=== PATIENT | female | born 1965 | race Caucasian/White ===

== ENCOUNTER 2023-11-14 14:41 | Outpatient (AMB) | payer OTHER, SELFPAY ==
--- NOTE | 2023-11-14 15:03 | MHC.OFFVIS ---
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 She also reports a syncope episode a few moths ago where she got up too fast and passed out hitting her head on the floor. She has since been having headaches, nausea, dizziness. Lathe Hand Required: No Allergies No Known Allergies Allergy (Verified 11/14/23 15:12) Medication List - Last Reconciled 11/14/23 by Mariola Townsend MD albuterol sulfate 90 mcg/actuation 1 inh inhalation QID bupropion HCl 150 mg PO DAILY fexofenadine (Roberta Allergy) 60 mg PO Q12H fluticasone propion-salmeterol 500-50 mcg/dose (Wixela Inhub) 1 inh inhalation BID ketotifen fumarate 0.025%(0.035%) 1 drp ophthalmic (eye) BID lorazepam 0.5 mg PO DAILY PRN montelukast (Singulair) 10 mg PO DAILY sertraline 200 mg PO DAILY trazodone 100 mg PO QDAY HPI HPI Comments History of Present Illness Details 58y/o female comes for evaluation of tingling in her left leg following Vaccination for COVID - J and J ( Jul 2021) and recent syncope. It started 2 weeks after her vaccination . she also her left leg becomes numb when she crosses her legs. No worsening or improvement since then. she also feels like her left leg is swollen but does not look swollen.she has back pain and her X ray shows severe narrowing of the disc spaces at L4-5 and L5-S1 levels. There are hypertrophic deg changes in the facet joints at L4-5 L5S1 levels and ted sacroiliac inflammation. she has neck pain Her PCP s notes says she had tingling in her UE and LE. she has h/o depression, anxiety . she also has increased sensitivity to cold ( Raynauds)- in her extremities she reports presyncopal episodes usually when she stands up from a sitting positions since her 30s and has worsened. In October 2023 - she got up quickly from her bed and passed out. she went to ER . Since then she has dizziness with change in head position, headaches.she feels worse when she turns to her left - feels dizzy she drinks about 50 oz of water she had a previous episode in 2019 and her MRI at that time - punctate foci of microhemorhage in the left parietal sulcus and undersurface of corpus collosum she has headaches since 2019 - mild and present all the time. No nausea, vomiting no photophobia or phonophobia. Alcohol intake - 10 drinks per week [facility] Medical History (Updated 11/14/23 @ 15:48 by Mariola Townsend MD) Vertigo Paresthesia of left leg Panic attacks Depression Anxiety Back pain Pre-syncope Syncope Chronic daily headache Surgical History H/O wrist surgery H/O nasal polypectomy Family History Father No problems noted. Mother HTN (hypertension) Breast CA Sister Anxiety Osteoporosis Social History Household Members: None Housing: House Alcohol intake: current Comment: 1 drink per night Patient Tobacco Use Status: Never used Tobacco Use of substances other than those prescribed or required for medical reasons: No Physical Exam Vital Signs: Last Vital Signs Pulse 78 11/14/23 15:05 Resp 16 11/14/23 15:05 BP 142/78 H 11/14/23 15:05 Pulse Ox 99 11/14/23 15:05 Oxygen Delivery Method Room Air 11/14/23 15:05 BMI result Body Mass Index 18.8 Const General: cooperative, healthy appearing and anxious Nutritional Appearance: thin Orientation/consciousness: patient oriented x3 Eyes Pupils: Equal, round and reactive pupils present Neuro General: patient oriented x3, gait normal, tone normal and moves all extremities Cranial nerves: Yes Facial sensation intact/muscles of mastication intact, Yes Intact sense of smell present, Yes Equal, round and reactive pupils present, Yes Bilaterally intact EOM present, Yes Nystagmus not present, Yes Normal facial strength present and Yes Midline tongue present Cognition (Neuro): normal cognition Gait exam (Neuro): Normal gait present Motor exam (neuro): 5/5 motor strength present throughout and Normal motor muscle tone present throughout Deep tendon reflexes (DTR's): Right triceps reflex intensity grade: 2+, Left triceps reflex intensity grade: 2+, Rt Biceps (C5, C6): 2+, Left biceps reflex intensity grade: 2+, Right brachioradialis reflex intensity grade: 2+, Left brachioradialis reflex intensity grade: 2+, Right patellar reflex intensity grade: 2+ and Left patellar reflex intensity grade: 2+ Coordination: [id number] test normal Assessment & Plan Assessment & Plan (1) Paresthesia of left leg: Comment: related to her lumbar deg changes or peroneal nerve compression ? Code(s): R20.2 - Paresthesia of skin (2) Syncope: Comment: no orthostatic changes although the patient c/o dizziness on standing Code(s): R55 - Syncope and collapse (3) Vertigo: Code(s): R42 - Dizziness and giddiness Plan Vestibular therapy Cardiology evaluation for syncope EMg NCS - left leg Orders: Orders NE electromyogram (EMG) Today R20.2 - Paresthesia of skin PT Evaluation and Treatment Today R42 - Dizziness and giddiness Referrals Cardiology Referral R55 - Syncope and collapse Coding Level of Care Code New Pt Level 4 (36124) Diagnoses Paresthesia of left leg R20.2 Syncope R55 Vertigo R42
[2023-11-14 15:05] VITALS: BP 142/78; PULSE 78; RESP 16; O2SAT 99; BMI 18.8
[2023-11-14 15:49] VITALS: BP 122/88; BP 122/90; PULSE 66; PULSE 67; PULSE 74
== END 2023-11-14 15:56 | disposition home or self-care (01) ==
PROVIDERS: PCP Pediatrics; Referring Provider Internal Medicine; Visit Provider Psychiatry & Neurology Neurology
DX: R20.2 Paresthesia of skin (principal); R55 Syncope and collapse; R42 Dizziness and giddiness
CPT/HCPCS: 99204

== ENCOUNTER → 2023-11-14 14:41 | Outpatient (BNVA) | payer OTHER, SELFPAY | PROVIDERS: PCP Pediatrics; Referring Provider Internal Medicine; Visit Provider Psychiatry & Neurology Neurology ==

== ENCOUNTER 2024-01-15 14:00 | Outpatient (REF) | payer OTHER, SELFPAY ==
--- NOTE | 2024-01-15 14:04 | EMG_ITS ---
Chief complaint: At least 2 years of numbness on left dorsal foot and leg. She has chronic back pain. Three years ago, she sprained her left ankle. Then started noting calcification on left anterior ankle. Exam shows bony calcification in the area of EDB muscle. EDB muscles atrophied compared to right. No footdrop. Reason for referral: Evaluate for peroneal neuropathy versus radiculopathy Referred by: Dr. Townsend Procedure done: Left lower extremity ordered, comparison studies done on right side as well Precautions and/or limitations: None The limb temperature was monitored continuously and remained between 32-36 degrees C during the performance of the NCS. Nerve Conduction Studies Anti Sensory Summary Table ?Stim Site NR Onset (ms) Norm Onset (ms) Peak (ms) Norm Peak (ms) O-P Amp (?V) Norm O-P Amp Site1 Site2 Delta-0 (ms) Dist (cm) Rod (m/s) Norm Rod (m/s) Left Sup Peron Anti Sensory (Ankle) Lateral Leg ? 1.4 2.5 <4.4 6.2 >5.0 Lateral Leg Ankle 1.4 14.0 100 Left Sural Anti Sensory (Lat Mall) Calf ? 2.9 3.4 <4.0 6.7 >5.0 Calf Lat Mall 2.9 14.0 48 Right Sural Anti Sensory (Lat Mall) Calf ? 3.1 3.5 <4.0 7.8 >5.0 Calf Lat Mall 3.1 14.0 45 Motor Summary Table ?Stim Site NR Onset (ms) Norm Onset (ms) O-P Amp (mV) Norm O-P Amp iAmp (mV) Amp (1st) (%) Site1 Site2 Delta-0 (ms) Dist (cm) Rod (m/s) Norm Rod (m/s) Left Peroneal Motor (Ext Dig Brev) Ankle NR <4.0 >2.5 Ankle Ext Dig Brev 0.0 B Fib NR B Fib Ankle 0.0 >40 Poplt NR Poplt B Fib 0.0 >40 Right Peroneal Motor (Ext Dig Brev) Ankle ? 4.0 <4.0 5.6 >2.5 6.7 100.0 Ankle Ext Dig Brev 4.0 0.0 B Fib ? 11.4 4.8 5.8 85.7 B Fib Ankle 7.4 36.0 49 >40 Poplt ? 12.1 5.9 7.6 105.4 Poplt B Fib 0.7 5.0 71 >40 Left Peroneal TA Motor (Tib Ant) Fib Head ? 3.7 <4.2 2.7 3.0 100.0 Fib Head Tib Ant 3.7 0.0 Poplit ? 3.4 <5.7 2.9 3.4 107.4 Poplit Fib Head 0.3 5.0 167 >40.5 Left Tibial Motor (Abd Desai Brev) Ankle ? 3.4 <5 4.6 >2.5 7.3 100.0 Ankle Abd Desai Brev 3.4 0.0 Knee ? 11.5 3.3 6.0 71.7 Knee Ankle 8.1 40.0 49 >40 Right Tibial Motor (Abd Desia Brev) Ankle ? 3.4 <5 4.9 >2.5 6.1 100.0 Ankle Abd Desai Brev 3.4 0.0 Knee ? 12.3 3.7 4.6 75.5 Knee Ankle 8.9 42.0 47 >40 EMG ?Side Muscle Nerve Root Ins Act Fibs Psw Amp Dur Poly Recrt Int Pat Comment Left AbdHallucis MedPlantar S1-2 Nml Nml Nml Nml Nml 0 Nml Complete Left AntTibialis Dp Br Peron L4-5 Nml Nml Nml Nml Nml 0 Nml Complete Left MedGastroc Tibial S1-2 Nml Nml Nml Nml Nml 0 Nml Complete Left VastusMed Femoral L2-4 Nml Nml Nml Nml Nml 0 Nml Complete Left Peroneus Long Sup Br Peron L5-S1 Nml Nml Nml Nml Nml 0 Nml Complete Paraspinal EMG ?Side Muscle Nerve Root Ins Act Fibs Psw Comment Left Lumbar Upper Rami Nml Nml Nml Left Lumbar Mid Rami Nml Nml Nml Left Lumbar Lower Rami Nml Nml Nml FINDINGS: Left peroneal nerve, recording at EDB, showed no response. Left peroneal nerve, recording at TA muscle, showed small amplitudes but no conduction block across the fibular neck. All other nerves tested, including left superficial peroneal sensory nerve, were within normal. Concentric needle EMG was performed in selected muscles of the left lower extremity and lumbar paraspinals. Study did not reveal signs of electric abnormalities as shown in the table below. IMPRESSION: 1. This is an abnormal study. 2. There is electrodiagnostic evidence for left isolated deep peroneal neuropathy. 3. There is no electrodiagnostic evidence for tibial neuropathy. lumbosacral plexopathy, lumbar radiculopathy, or peripheral neuropathy. CLINICAL COMMENT: Possible correlation between calcification on left ankle where EDB muscle should be. Further clinical correlation recommended. Thank you for your kind referral. Madonna Champion MD, MARGARET Board Certified, [place] [employer] and [employer] (ABPMR) Board Certified, [place] Board [employer] Electrodiagnostic [employer] (ABEM) [place] [id number] [facility]
== END 2024-01-15 14:01 | disposition home or self-care (01) ==
LOC: HO.NEURO 14:00
PROVIDERS: PCP Pediatrics; Visit Provider Psychiatry & Neurology Neurology
DX: R20.2 Paresthesia of skin (principal)
CPT/HCPCS: 95886; 95910

== ENCOUNTER → 2024-01-15 14:04 | Outpatient (BNV) | payer OTHER, SELFPAY | PROVIDERS: PCP Pediatrics; Visit Provider Physical Medicine & Rehabilitation | DX: G57.32 Lesion of lateral popliteal nerve, left lower limb (principal) | CPT/HCPCS: 95886; 95910 ==

== ENCOUNTER 2024-03-09 07:26 | Outpatient (AMB) | payer OTHER, SELFPAY ==
--- NOTE | 2024-03-09 07:27 | A.OFFVIS_ITS ---
Vital Signs 03/09/24 07:29 Height 5 ft 6 in Weight 112 lb 6 oz BMI 18.1 BP 108/70 Blood Pressure Location Rt brachial Position Sitting Respiration 16 Pulse 64 Pulse Source Palpation Intake Visit Reasons: 4M follow up-CONF Intake Note: Pt presents to the office for her 4 month follow up for LLE numbness. Death Surveys Coder Required: No Allergies No Known Allergies Allergy (Verified 03/09/24 07:28) Medication List - Last Reconciled 03/09/24 by Mariola Townsend MD albuterol sulfate 90 mcg/actuation 1 inh inhalation QID bupropion HCl 150 mg PO DAILY fexofenadine (Roberta Allergy) 60 mg PO Q12H fluticasone propion-salmeterol 500-50 mcg/dose (Wixela Inhub) 1 inh inhalation BID ketotifen fumarate 0.025%(0.035%) 1 drp ophthalmic (eye) BID lorazepam 0.5 mg PO DAILY PRN sertraline 200 mg PO DAILY trazodone 100 mg PO QDAY HPI Comments Details: 58y/o female comes for follow up. Her EMG was c/w isolated left deep peroneal neuropathy Her symptoms started a year ago and 6 months prior to that she had a left ankle sprain and was treated with a boot by her PCP which she wore for about 4 weeks . Her pain was better after that but 6 mths later she started noticing numbness and tingling. she also her left leg becomes numb when she crosses her legs. No worsening or improvement since then. she also feels like her left leg is swollen but does not look swollen.she has back pain and her X ray shows severe narrowing of the disc spaces at L4-5 and L5-S1 levels. There are hypertrophic deg changes in the facet joints at L4-5 L5S1 levels and ted sacroiliac inflammation. she has neck pain No episodes of syncope or dizziness. she was seen by cardiology and everything was normal. she has headaches since 2019 - mild and present all the time. No nausea, vomiting no photophobia or phonophobia. 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 Mother HTN (hypertension) Breast CA Sister Anxiety Osteoporosis Social History Household Members: None Housing: House Alcohol intake: current Comment: 1 drink per night Patient Tobacco Use Status: Never used Tobacco Physical Exam Vital Signs: Last Vital Signs Pulse 64 03/09/24 07:29 Resp 16 03/09/24 07:29 BP 108/70 03/09/24 07:29 BMI result Body Mass Index 18.1 Const General: cooperative, healthy appearing and anxious Nutritional Appearance: thin Orientation/consciousness: patient oriented x3 Eyes Pupils: Equal, round and reactive pupils present Neuro Other: difficulty with heel walking General: patient oriented x3, gait normal, tone normal and moves all extremities Cranial nerves: Yes Facial sensation intact/muscles of mastication intact, Yes Intact sense of smell present, Yes Equal, round and reactive pupils present, Yes Bilaterally intact EOM present, Yes Nystagmus not present, Yes Normal facial strength present and Yes Midline tongue present Cognition (Neuro): normal cognition Gait exam (Neuro): Normal gait present Motor exam (neuro): 5/5 motor strength present throughout and Normal motor muscle tone present throughout Deep tendon reflexes (DTR's): Right triceps reflex intensity grade: 2+, Left triceps reflex intensity grade: 2+, Rt Biceps (C5, C6): 2+, Left biceps reflex intensity grade: 2+, Right brachioradialis reflex intensity grade: 2+, Left brachioradialis reflex intensity grade: 2+, Right patellar reflex intensity grade: 2+ and Left patellar reflex intensity grade: 2+ Coordination: [id number] test normal Assessment & Plan Assessment & Plan (1) 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
[2024-03-09 07:29] VITALS: BP 108/70; PULSE 64; RESP 16; BMI 18.1
== END 2024-03-09 08:03 | disposition home or self-care (01) ==
PROVIDERS: PCP Pediatrics; Visit Provider Psychiatry & Neurology Neurology
DX: G57.32 Lesion of lateral popliteal nerve, left lower limb (principal)
CPT/HCPCS: 99214

== ENCOUNTER → 2024-03-09 07:26 | Outpatient (BNVA) | payer OTHER, SELFPAY | PROVIDERS: PCP Pediatrics; Visit Provider Psychiatry & Neurology Neurology ==